=== PATIENT | female | born 1960 | race Caucasian/White ===

== ENCOUNTER → 2017-09-16 00:37 | Emergency (ER) | payer OTHER ==
[~2017-09-16 00:37] MED LIST: Apixaban* 2.5 MG TAB PO SCH; Apixaban* 5 MG TAB PO ONE
[2017-09-16 06:11] LABS: Hematocrit 41 % (35-47); Hemoglobin 14.2 g/dl (12.0-16.0); Mean Corpuscular HGB Conc 35 g/dl (31-36); Mean Corpuscular Hemoglobin 32 pg (27-31); Mean Corpuscular Volume 90 fL (80-97); Mean Platelet Volume 8 um3 (7.4-10.4); Red Blood Count 4.51 10^6/ul (4.0-5.4); Red Cell Distribution Width 13 % (10.5-15); White Blood Count 9.3 10^3/ul (3.5-10.8)
[2017-09-16 06:24] LABS: BUN/Creatinine Ratio 18.4 (8-20); Calcium 9.3 mg/dL (8.6-10.3); EGFR African American 86.9 (>60); EGFR Non-African American 67.6 (>60); Globulin 2.9 g/dL (2-4); Total Bilirubin 0.7 mg/dL (0.2-1.0); Total Protein 6.9 g/dL (6.4-8.9)
[2017-09-16 06:39] VITALS: BP 127/76
--- NOTE | 2017-09-16 08:23 | RAD ---
HISTORY: Left leg pain and edema COMPARISONS: None relevant TECHNIQUE: Multiple transverse and longitudinal ultrasound images were obtained of the left lower extremity from the level of the common femoral vein inferiorly through to the infrapopliteal veins using grayscale, color Doppler, and spectral Doppler imaging with and without compression and with augmentation. Comparison images were obtained of the contralateral common femoral vein. FINDINGS: VEINS: There is occlusive thrombus noted within the inferior extent of the left femoral vein and popliteal vein. The remainder of the venous system of the left lower extremity is compressible throughout its course, with normal flow on color Doppler imaging and normal response to augmentation on spectral Doppler imaging. SOFT TISSUES: Unremarkable. OTHER FINDINGS: None. IMPRESSION: OCCLUSIVE THROMBUS OF THE INFERIOR EXTENT OF THE LEFT FEMORAL VEIN AND POPLITEAL VEIN
--- NOTE | 2017-09-16 20:01 | ED ---
Jamie Barcenas Abhishek, scribed for Manny Cardenas on 09/16/17 at 0717 . Lower Extremity - HPI Summary HPI Summary: This patient is a 57 year old F presenting to [facility] accompanied by male with a chief complaint of edema on LLE since this week. CC is described as worse since today. Pt states the left calf was twice the size of the right calf. The patient rates the pain 3/10 in severity. Symptoms aggravated by nothing. Symptoms alleviated by nothing. Patient reports pain in the back of the LLE. PMHx includes Ulcers on the Vocal cords. - History of Current Complaint Chief Complaint: EDExtremityLower Stated Complaint: LT LEG SWELLING Time Seen by Provider: 09/16/17 02:09 Hx Obtained From: Patient Onset/Duration: Worse Since - today Severity Initially: Mild Severity Currently: Mild Pain Intensity: 3 Pain Scale Used: 0-10 Numeric Timing: Constant, Lasting Weeks - one week Location: Other - LLE Associated Signs And Symptoms: Positive: Swelling Aggravating Factor(s): Nothing Alleviating Factor(s): Nothing - Allergies/Home Medications Allergies/Adverse Reactions: Allergies Allergy/AdvReac Type Severity Reaction Status Date / Time Prochlorperazine Allergy Severe Unknown Verified 09/16/17 00:47 [From Compazine] Reaction Details PMH/Surg Hx/FS Hx/Imm Hx Endocrine/Hematology History: Denies: Hx Diabetes, Hx Sickle Cell Disease Cardiovascular History: Denies: Hx Hypertension, Hx Pacemaker/ICD, Other Cardiovascular Problems/ Disorders Respiratory History: Reports: Hx Seasonal Allergies Denies: Other Respiratory Problems/Disorders GI History: Comment Only: Other GI Disorders - hx prolapse with chronic constipation History: Reports: Hx Kidney Infection - IN THE PAST Musculoskeletal History: Reports: Hx Arthritis - SPINAL, Hx Back Problems, Other Musculoskeletal History Sensory History: Reports: Hx Contacts or Glasses - GLASSES Denies: Hx Hearing Aid Opthamlomology History: Reports: Hx Contacts or Glasses - GLASSES Neurological History: Reports: Hx Migraine - 1 Q YEAR Psychiatric History: Reports: Hx Depression Denies: Hx Panic Disorder, Other Psychiatric Issues/Disorders - Surgical History Surgery Procedure, Year, and Place: SPINAL FUSION WITH RODS AND PINS 11/2012. PROLAPSE BLADDER SURGERY. WISDOM TEETH. HYSTERCTOMY Hx Anesthesia Reactions: Yes - VOMITING - Immunization History Date of Tetanus Vaccine: utd Date of Influenza Vaccine: none Infectious Disease History: No Infectious Disease History: Denies: Hx Clostridium Difficile, Hx Hepatitis, Hx Human Immunodeficiency Virus (HIV), Hx of Known/Suspected MRSA, Hx Shingles, Hx Tuberculosis, Hx Known/ Suspected VRE, Hx Known/Suspected VRSA, History Other Infectious Disease, Traveled Outside the [place] in Last 30 Days - Family History Known Family History: Positive: Cardiac Disease, Diabetes, Other - cancer - Social History Alcohol Use: Rare Substance Use Type: Reports: None Smoking Status (MU): Never Smoked Tobacco Review of Systems Constitutional: Negative Eyes: Negative ENT: Negative Cardiovascular: Negative Respiratory: Negative Gastrointestinal: Negative Genitourinary: Negative Positive: Edema - LLE at the left calf, Other - LLE pain Skin: Negative Neurological: Negative Psychological: Normal All Other Systems Reviewed And Are Negative: Yes Physical Exam - Summary Physical Exam Summary: Physical Exam Findings Appearance: Well appearing, no pain distress Skin: warm, dry, reflects adequate perfusion Head/face: normal Eyes: EOMI, FLOWER ENT: normal Neck: supple, nontender Respiratory: CTA, breath sounds present Cardiovascular: RRR, pulses symmetrical Abdomen: nontender, soft Bowel: present Musculoskeletal: Left calf tenderness, Mild swelling on the LLE Neuro: normal, sensory motor intact, A&Ox3, No neurological deficit Triage Information Reviewed: Yes Vital Signs On Initial Exam: Initial Vitals Temp Pulse Resp BP Pulse Ox 98.7 F 84 14 163/90 98 09/16/17 00:39 09/16/17 00:39 09/16/17 00:39 09/16/17 00:39 09/16/17 00:39 Vital Signs Reviewed: Yes - Nikole Coma Scale Coma Scale Total: 15 Diagnostics - Vital Signs Vital Signs Temp Pulse Resp BP Pulse Ox 09/16/17 06:30 67 127/76 96 09/16/17 06:03 72 95 09/16/17 06:01 124/79 09/16/17 03:50 69 95 09/16/17 03:30 115/73 09/16/17 03:00 70 123/62 96 09/16/17 02:30 69 129/80 95 09/16/17 02:14 72 96 09/16/17 02:12 141/74 09/16/17 00:39 98.7 F 84 14 163/90 98 - Laboratory Lab Results: Lab Results 09/16/17 09/16/17 09/16/17 Range/Units 06:00 06:00 06:00 WBC 9.3 (3.5-10.8) 10^3/ul RBC 4.51 (4.0-5.4) 10^6/ul Hgb 14.2 (12.0-16.0) g/dl Hct 41 (35-47) % MCV 90 (80-97) fL MCH 32 H (27-31) pg MCHC 35 (31-36) g/dl RDW 13 (10.5-15) % Plt Count 236 (150-450) 10^3/ul MPV 8 (7.4-10.4) um3 Neut % (Auto) 60.5 (38-83) % Lymph % (Auto) 25.9 (25-47) % [place] % (Auto) 7.2 (1-9) % Eos % (Auto) 5.2 (0-6) % Baso % (Auto) 1.2 (0-2) % Absolute Neuts (auto) 5.6 (1.5-7.7) 10^3/ul Absolute Lymphs (auto) 2.4 (1.0-4.8) 10^3/ul Absolute Monos (auto) 0.7 (0-0.8) 10^3/ul Absolute Eos (auto) 0.5 (0-0.6) 10^3/ul Absolute Basos (auto) 0.1 (0-0.2) 10^3/ul Absolute Nucleated RBC 0.01 10^3/ul Nucleated RBC % 0.1 INR (Anticoag Therapy) 0.92 (0.89-1.11) APTT 28.8 (26.0-36.3) seconds Sodium 138 (133-145) mmol/L Potassium 4.0 (3.5-5.0) mmol/L Chloride 106 (101-111) mmol/L Carbon Dioxide 24 (22-32) mmol/L Anion Gap 8 (2-11) mmol/L BUN 16 (6-24) mg/dL Creatinine 0.87 (0.51-0.95) mg/dL Est GFR ( Amer) 86.9 (>60) Est GFR (Non-Af Amer) 67.6 (>60) BUN/Creatinine Ratio 18.4 (8-20) Glucose 93 (70-100) mg/dL Calcium 9.3 (8.6-10.3) mg/dL Total Bilirubin 0.70 (0.2-1.0) mg/dL AST 23 (13-39) U/L ALT 33 (7-52) U/L Alkaline Phosphatase 82 (34-104) U/L Total Protein 6.9 (6.4-8.9) g/dL Albumin 4.0 (3.2-5.2) g/dL Globulin 2.9 (2-4) g/dL Albumin/Globulin Ratio 1.4 (1-3) Result Diagrams: 09/16/17 06:00 09/16/17 06:00 Lab Statement: Any lab studies that have been ordered have been reviewed, and results considered in the medical decision making process. - Ultrasound No standard instances Ultrasound Interpretation Completed By: Radiologist - Venous doppler study reveals no deep vein thrombrosis. ED physician has reveiwed this radiology report and agrees. Lower Extremity Course/Dx - Course Course Of Treatment: This patient is a 57 year old F presenting to [facility] accompanied by male with a chief complaint of edema on LLE since this week. Patient reports pain in the back of the LLE. Venous Doppler study reveals no deep vein thrombosis. Patient will be (discharged) with a Dx of DVT on the LLE with a follow up from PCP within 3 days. Pt is agreeable with this plan. - Diagnoses Differential Diagnosis/HQI/PQRI: Positive: Bursitis, Contusion, DVT, Phlebitis, Strain Provider Diagnoses: Deep vein thrombosis Discharge - Discharge Plan Condition: Stable Disposition: HOME Prescriptions: Apixaban* [Eliquis] 10 mg PO BID #14 tab Apixaban* [Eliquis*] 5 mg PO BID #60 tab Patient Education Materials: Deep Venous Thrombosis (ED) Referrals: Floyd Nicholas MD [Primary Care Provider] - (Follow up with PCP within 3 days. ) The documentation as recorded by the Jamie benavides Abhishek accurately reflects the service I personally performed and the decisions made by Theresa petty Emmanuel.
== END | disposition home or self-care (01) ==
LOC: ED 00:37
DX: I82.4Z2 Acute embolism and thrombosis of unspecified deep veins of left distal lower extremity (principal); M79.89 Other specified soft tissue disorders
CPT/HCPCS: 36415; 80053; 85025; 85610; 85730; 99283

== ENCOUNTER 2020-01-11 17:43 | Emergency (ER) | payer OTHER ==
[2020-01-11 18:39] VITALS: BP 146/96
--- NOTE | 2020-01-11 18:55 | UC ---
Complaint Female HPI - HPI Summary HPI Summary: 59-year-old female with burning on urination, frequency and urgency over the past couple of days. She denies any fever or chills. She does not have a history of urinary tract infections. - History Of Current Complaint Chief Complaint: UCGU Stated Complaint: URINARY Time Seen by Provider: 01/11/20 18:08 Hx Obtained From: Patient ?: No Onset/Duration: Gradual Onset Timing: Intermittent Severity Initially: Mild Severity Currently: Mild Pain Intensity: 3 Character: Burning Aggravating Factor(s): Urination Alleviating Factor(s): Nothing Associated Signs And Symptoms: Positive: Negative - Allergies/Home Medications Allergies/Adverse Reactions: Allergies Allergy/AdvReac Type Severity Reaction Status Date / Time Prochlorperazine Allergy Severe Unknown Verified 01/11/20 18:39 [From Compazine] Reaction Details Home Medications: Home Medications Bupropion HCl [Bupropion HCl Xl] 300 mg PO DAILY 11/16/12 [History Confirmed ] Nystatin CREAM* [Nystatin Cream*] 1 applic TOPICAL 11/16/12 [History Confirmed 02/04/15] Docusate Sodium [Stool Softener] 100 mg PO DAILY 04/11/13 [History Confirmed ] Fiber 1 PO DAILY 11/25/13 [History Confirmed 02/04/15] [place]-3 Fatty Acids [Fish Oil] 1 cap PO DAILY 11/25/13 [History Confirmed ] Ibuprofen 600 mg PO PRN 02/04/15 [History Confirmed 02/04/15] Gabapentin CAP(*) [Neurontin 300 CAP(*)] 300 mg PO BEDTIME 01/11/20 [History Confirmed 01/11/20] Montelukast Sodium TAB* [Singulair TAB*] 5 mg PO DAILY 01/11/20 [History Confirmed 01/11/20] Sulfamethox/Trimethoprim DS* [Bactrim DS 800/160 TAB*] 1 tab PO BID 5 Days #9 tab 01/11/20 [Rx] PMH/Surg Hx/FS Hx/Imm Hx Previously Healthy: Yes Psychological History: Depression - Surgical History Surgical History: Yes Surgery Procedure, Year, and Place: SPINAL FUSION WITH RODS AND PINS 11/2012. PROLAPSE BLADDER SURGERY. WISDOM TEETH. HYSTERCTOMY - Family History Known Family History: Positive: Cardiac Disease, Diabetes, Other - cancer - Social History Lives: With Family Alcohol Use: Rare Substance Use Type: None Smoking Status (MU): Never Smoked Tobacco - Immunization History Most Recent Influenza Vaccination: 09/2013 Most Recent Tetanus Shot: 3-4 YRS AGO Most Recent Pneumonia Vaccination: NEVER Review of Systems All Other Systems Reviewed And Are Negative: Yes Genitourinary: Positive: Dysuria, Frequency, Urgency Is Patient Immunocompromised?: No Physical Exam Triage Information Reviewed: Yes Appearance: Well-Appearing, No Pain Distress, Well-Nourished Vital Signs: Initial Vital Signs Temp 97.9 F 01/11/20 18:25 Pulse 82 01/11/20 18:25 Resp 18 01/11/20 18:25 BP 146/96 01/11/20 18:25 Pulse Ox 98 01/11/20 18:25 Vital Signs Reviewed: Yes Respiratory: Positive: Lungs clear, Normal breath sounds, No respiratory distress, No accessory muscle use Cardiovascular: Positive: RRR, No Murmur, Pulses Normal, Brisk Capillary Refill Abdomen Description: Positive: Nontender, No Organomegaly, Soft. Negative: CVA Tenderness (R), CVA Tenderness (L), Distended, Guarding, Hepatomegaly, Splenomegaly Bowel Sounds: Positive: Present Musculoskeletal Exam: Normal Neurological Exam: Normal Psychological Exam: Normal Skin Exam: Normal Complaint Female Dx - Course Course Of Treatment: Urinalysis: Positive for leukocytes. Patient is comfortable here and in no distress. She was given Bactrim DS one tab here and to follow-up tomorrow to fill the prescription at her pharmacy. - Differential Dx/Diagnosis Provider Diagnosis: UTI (urinary tract infection) Discharge ED - Sign-Out/Discharge Documenting (check all that apply): Patient Departure All imaging exams completed and their final reports reviewed: No Studies - Discharge Plan Condition: Good Disposition: HOME Prescriptions: Sulfamethox/Trimethoprim DS* [Bactrim DS 800/160 TAB*] 1 tab PO BID 5 Days #9 tab Patient Education Materials: Urinary Tract Infection in Women (DC) Referrals: Floyd Nicholas MD [Primary Care Provider] - Additional Instructions: Increase fluids, take the Bactrim with food. Follow-up in the emergency room if you develop fever, chills, back pain or vomiting and unable keep medicine down. Follow-up with your primary care provider if no improvement in 3 or 4 days. - Billing Disposition and Condition Condition: GOOD Disposition: Home
[2020-01-11] MEDS ORDERED: Sulfamethox/Trimethoprim DS 800/160* TAB PO ONE (18:59)
== END 2020-01-11 19:13 | disposition home or self-care (01) ==
LOC: UCCORT 17:43
DX: N39.0 Urinary tract infection, site not specified (principal); F32.9 Major depressive disorder, single episode, unspecified; Z88.8 Allergy status to other drugs, medicaments and biological substances; Z79.899 Other long term (current) drug therapy
CPT/HCPCS: 81003; 87077; 87086; 99212; A9270-GY; G0463